=== PATIENT | female | born 1960 ===

== ENCOUNTER → 2021-07-27 | Outpatient (CLI) | payer BC ==
[2021-07-27 08:58] VITALS: BP 136/90; PULSE 60; RESP 20; TEMP 97.7
--- NOTE | 2021-07-27 13:09 | P.PAINCN ---
History of Present Illness - Reason for Consult Consult date: 07/27/21 - Chief Complaint Low back pain - History of Present Illness Megan is a 61-year-old female presented to clinic today for initial evaluation for pain management. She has a history of lumbar degenerative disc disease, lumbar spondylosis with facet arthropathy without myelopathy, and lumbar radiculopathy. She had this history of low back pain for about 1-1/2-2 years. Initiated and was lifting a heavy box where she felt a pop in her lower back. Today she is reporting pain in her low back radiates down to her groin into the anterior portion of her thighs. This new onset of pain is about a nerve problem in the last 2 weeks. She describes it as a sharp aching pain is almost constant. She states pain is worse with bending and sitting. Pain is better with rest. In the past she's had physical therapy and summer child caregiver that offered some benefit for her. She has just recently finished a Medrol Dosepak with little benefit. She has also had a lumbar epidural steroid injection the p ast at L1-2 which gave her significant benefit. Today she reports that her pain is 9 out of 10 on a 0-to-10 scale. Her pain can fluctuate from anywhere from 6 out of 10-10 out of 10. She denies any bowel or bladder dysfunction, saddle anesthesia, or any other red flag symptoms. Medications and Allergies Home Medications Medication Instructions Recorded Confirmed Type Levothyroxine Sodium [Synthroid] 88 mcg PO DAILY 07/27/21 07/27/21 History Allergies Allergy/AdvReac Type Severity Reaction Status Date / Time Latex, Natural Rubber Allergy Intermediate Rash/Hives Verified 07/27/21 08:43 NSAIDS (Non-Steroidal AdvReac Unknown Verified 07/27/21 08:36 Anti-Inflamma Physical Exam REVIEW OF ORGAN SYSTEMS: CONSTITUTIONAL: No fevers or chills. No recent weight loss. EYES: denies troubles with vision. HEENT: No difficulties with hearing. No nosebleeds. No difficulty swallowing. RESPIRATORY: Denies any troubles with breathing or dyspnea on exertion. CARDIOVASCULAR: Denies any chest pain, palpitations, or recent heart attacks. GASTROINTESTINAL: Denies fatty food intolerance. Has change in bowel habits and gas bloat. GENITOURINARY: Denies any blood in urine. Has increased urinary frequency. NEUROLOGICAL: + numbness and tingling along the distal extremities. No seizure disorders or headaches. MUSCULOSKELETAL: Has back pain. SKIN:no skin cancer. No rash. PSYCHIATRIC: Denies current depression or suicidal though ts. ENDOCRINE: Denies current thyroid disorders. Denies any blood sugar glucose intolerance. HEME/LYMPHATIC: Denies any lumps and bumps around the neck. History of deep venous thrombosis. ALLERGY/IMMUNOLOGY: No immunoglobulin therapy. No immune deficiencies. BREAST: Denies current breast lumps, pain or nipple discharge. Physical Examinations : Constitutiona : Cooperative , not in acute distress . HEENT : nech : supple , no Lymphadenopathy , normal thyroid size . : eyes no ptosis , no icterus, no photophobia . : ENT normal of hearing , nor mal oropharynx , no Thrush . Respiratory : Chest clear to auscultations Bilaterally , no wheezing , no Rhonchi . Cardiovascula : regular rate and rhythem , S1 , S2 , no S3 , no S4. Gastrointestina : abdomen soft no tenderness , bowel sounds , no organomegally . Genitourinary : Defferred . neurologic : Cranial nerve II to XII intact , no focal neurological deffecit . psychatric : alert , oriented X 3 , appropriate affect , intact judgment and insight . Lymphatic : no Lymphadenopathy . musculoskeltal : Lumber spine moter stegnth lower extremities ,thigh and legs 5/5 Right side , 5/5 Left side deep tendon reflexes : normal Knee Jerk , normal ankle Jerk lumber facet Loading Test= positive Right , positive Left Range of motion of the lumbar spine Flexion 30 degrees, extension 10 degrees strait leg raising test , positive at 10 degree Fabere test= positive Right , and positive left . Sever tenderness over the Sacroiliac joint on the Right , and Left sides Gaenslen test= positive bilaterally. Seated flexion test= positive bilaterally. Assessment and Plan Assessment: Assessment and plan Assessment: Lumbar degenerative disc disease Lumbar radiculopathy Lumbar spondylosis with facet arthropathy without myelopathy Plan: She could benefit from lumbar epidural straight injection at L1-[address] Shelley was available by phone for consultation during his visit. I have spent 50 minutes on patient care today. The time was used to review the medical records including relevant urine studies and Prescription history (MAPs), review of the available imaging, evaluation and examination of the patient, coordination of care with the medical staff and if applicable referring physicians, as well as creation of the medical record. - PQRS measures = - Patient's medications are documented in the chart. -Tobacco use is negative -Patient's has received pneumococcal vaccine. -Advanced care planning discussed, patient not eligible. -Opiate contract not signed. -Pain positive and follow-up visit/procedure is scheduled. -Patient's blood pressure measured 136/90 , and documented in the record ,and patient will follow up with the primary care. -Patient's weight was measured and body mass index within the normal limits -Patient was not identified as an unhealthy alcohol user Time with Patient: Greater than 30 PQRS Measure Charge Sheet - Pain Location Lower Back Non-Pharmacological Interventions: Chiropractic Treatment, Inactivity, Physical Therapy Pharmacological Interventions: Epidural, PRN Medication Home Medications: Ambulatory Orders Levothyroxine Sodium [Synthroid] 88 mcg PO DAILY 07/27/21
== END ==
LOC: PNWHC3 07:54
PROVIDERS: ATTEND Student in an Organized Health Care Education/Training Program
DX: M51.16 Intervertebral disc disorders with radiculopathy, lumbar region (principal); M47.26 Other spondylosis with radiculopathy, lumbar region; Z91.040 Latex allergy status; Z88.6 Allergy status to analgesic agent
CPT/HCPCS: 99202